=== PATIENT | male | born 1945 | race Caucasian/White ===

== ENCOUNTER → 2016-10-21 | Outpatient (CLI) | payer BC | END | disposition short-term general hospital (02) | LOC: CLUROL 08:04 | DX: N52.9 Male erectile dysfunction, unspecified (principal); Z85.46 Personal history of malignant neoplasm of prostate ==

== ENCOUNTER → 2016-11-14 | Outpatient (CLI) | payer BC | END | disposition short-term general hospital (02) | LOC: CLCARD 04:42 | DX: I25.10 Atherosclerotic heart disease of native coronary artery without angina pectoris (principal); E78.5 Hyperlipidemia, unspecified; I10 Essential (primary) hypertension; I35.0 Nonrheumatic aortic (valve) stenosis; E66.9 Obesity, unspecified; Z95.1 Presence of aortocoronary bypass graft; Z85.46 Personal history of malignant neoplasm of prostate ==